=== PATIENT | female | born 1970 | race Two or more races ===

== ENCOUNTER 2023-02-28 03:50 | Day surgery (SDC) | payer OTHER ==
[2023-02-24 14:30] VITALS: BMI 23.9
[2023-02-28] MEDS ORDERED: MIDAZOLAM HCL 2 MG/2 ML SINGLE DOSE VIAL ONE (07:53)
[2023-02-28] MEDS ORDERED: LIDOCAINE HCL/PF 2% SDV 5ML VIAL ONE (08:19)
[2023-02-28] MEDS ORDERED: PROPOFOL 20 ML ONE (08:19)
[2023-02-28] MEDS ORDERED: DEXAMETHASONE SOD PHOSPHATE 4 MG/1 ML VIAL ONE (09:35)
[2023-02-28] MEDS ORDERED: KETOROLAC TROMETHAMINE 30 MG/1 ML VIAL ONE (09:35)
[2023-02-28] MEDS ORDERED: ONDANSETRON 4 MG/2 ML VIAL ONE ×2 (09:35→09:42)
[2023-02-28 11:42] VITALS: RESP 20
[2023-02-28 13:02] VITALS: BP 130/77; PULSE 78; TEMP 97.6
== END 2023-02-28 12:40 | disposition home or self-care (01) ==
LOC: JASU-SURG 03:50
PROVIDERS: ATTEND Obstetrics & Gynecology
PROC: 0UB98ZZ Excision of Uterus, Via Natural or Artificial Opening Endoscopic (ICD-10-PCS; principal; 2023-02-28 09:00)
DX: N93.9 Abnormal uterine and vaginal bleeding, unspecified (principal); N88.8 Other specified noninflammatory disorders of cervix uteri; N84.0 Polyp of corpus uteri
CPT/HCPCS: 81025; 87070; 87075; 87205; 88305-TC; 94760

== ENCOUNTER 2025-04-22 06:20 | Day surgery (SDC) | payer OTHER ==
[2025-04-17 15:08] VITALS: BMI 25.4
[2025-04-22] MEDS ORDERED: IBUPROFEN 800 MG/8 ML IJ IVPB PRN (07:32)
[2025-04-22] MEDS ORDERED: IBUPROFEN 600 MG TABLET (FP) PO PRN (07:32)
[2025-04-22] MEDS ORDERED: ONDANSETRON 4 MG/2 ML VIAL IVPUSH PRN (07:32)
[2025-04-22] MEDS ORDERED: MIDAZOLAM HCL 2 MG/2 ML SINGLE DOSE VIAL ONE (07:39)
[2025-04-22] MEDS ORDERED: PROPOFOL 40 ML ONE (07:40)
[2025-04-22] MEDS ORDERED: ELECTROLYTE-148 SOLN 1,000 ML IV SCH (07:45)
[2025-04-22 09:09] VITALS: RESP 18
[2025-04-22] MEDS ORDERED: LACTATED RINGERS SOLUTION 1,000 ML IV SCH (09:15)
[2025-04-22 12:59] VITALS: BP 126/74; PULSE 66; TEMP 97.8
== END 2025-04-22 12:04 | disposition home or self-care (01) ==
LOC: JASU-SURG 06:20
PROVIDERS: ATTEND Obstetrics & Gynecology
PROC: 0UB98ZZ Excision of Uterus, Via Natural or Artificial Opening Endoscopic (ICD-10-PCS; principal; 2025-04-22 07:30)
DX: N92.1 Excessive and frequent menstruation with irregular cycle (principal); N84.0 Polyp of corpus uteri
CPT/HCPCS: 81025; 86850; 86900; 86901; 88305-TC; 94760